=== PATIENT | female | born 1990 | race Caucasian/White ===

== ENCOUNTER 2018-08-29 09:36 | Emergency (ER) | payer OTHER ==
[~2018-08-29] VITALS: Ht 172.7 cm; Wt 95.9 kg
[2018-08-29 09:55] VITALS: BP 130/90
[2018-08-29] MEDS ORDERED: KETOROLAC 60 MG/2 ML VIAL IM ONE (11:00)
[2018-08-29] MEDS ORDERED: fentaNYL 0.05 MG/ML VIAL IM ONE (12:05)
[2018-08-29 14:06] VITALS: BP 125/78
== END 2018-08-29 14:07 | disposition home or self-care (01) ==
LOC: MED 09:36
DX: S39.012A Strain of muscle, fascia and tendon of lower back, initial encounter (principal); R10.2 Pelvic and perineal pain; X58.XXXA Exposure to other specified factors, initial encounter; Y93.89 Activity, other specified; Y92.89 Other specified places as the place of occurrence of the external cause; Y99.8 Other external cause status
CPT/HCPCS: 72100; 76856; 81002; 81025; 96372; 99284; J1885; J3010; Q0092

== ENCOUNTER 2018-08-30 12:36 | Emergency (ER) | payer OTHER ==
[~2018-08-30] VITALS: Ht 172.7 cm; Wt 83.9 kg
--- NOTE | 2018-08-30 12:50 | NUR ---
patient amb with steady gait to bed 09
[2018-08-30 12:55] VITALS: BP 137/79
--- NOTE | 2018-08-30 12:58 | NUR ---
BIB SELF. PATIENT PRESENTS TO ED FOR A RECHECK. PT STATES SHE WAS HERE YESTERDAY AND WAS TOLD TO COME BACK IN TODAY TO RECHECK ON HER OVIAN PAIN. STATES SHE HAS HAD N/V TODAY; SKIN IS PINK/WARM/DRY; AAOX4 WITH EVEN AND STEADY GAIT; LUNGS CLEAR BL; HR EVEN AND REGULAR; PT DENIES ANY FEVER, CP, SOB, OR COUGH AT THIS TIME; PATIENT STATES PAIN OF 5/10 AT THIS TIME; VSS; PATIENT POSITIONED FOR COMFORT; HOB ELEVATED; BEDRAILS UP X2; BED DOWN. ER MD MADE AWARE OF PT STATUS.
--- NOTE | 2018-08-30 13:49 | NUR ---
Patient being evaluated by physician at bedside.
--- NOTE | 2018-08-30 13:53 | NUR ---
DR. DONALDSON EVALUATING AT BEDSIDE
[2018-08-30 15:52] LABS: APPEARANCE,URINE CLEAR (CLEAR); COLOR,URINE YELLOW (YELLOW)
[2018-08-30 15:53] LABS: BLOOD, URINE TRACE (NEGATIVE); UGLUCOSE NEGATIVE (NEGATIVE)
[2018-08-30 15:54] LABS: BILIRUBIN,URINE NEGATIVE (NEGATIVE); LEUKOCYTE ESTERASE ,URINE TRACE (NEGATIVE); NITRITE, URINE NEGATIVE (NEGATIVE)
[2018-08-30 15:56] VITALS: BP 132/75
--- NOTE | 2018-08-30 15:57 | NUR ---
Patient discharged with v/s stable. Written and verbal after care instructions given and explained. Patient verbalized understanding. Ambulatory with steady gait. All questions addressed prior to discharge. Advised to follow up with PMD.
[2018-08-30 16:00] LABS: RBC,URINE 0-5 (RARE) /HPF (0-5)
== END 2018-08-30 15:57 | disposition home or self-care (01) ==
LOC: MED 12:36
DX: R11.10 Vomiting, unspecified (principal); R63.0 Anorexia
CPT/HCPCS: 76705; 76830; 81001; 81025; 87086; 93976; 99285; Q0092

== ENCOUNTER 2019-05-04 08:13 | Emergency (ER) | payer OTHER ==
[~2019-05-04] VITALS: Ht 175.3 cm; Wt 95.3 kg
[2019-05-04 08:13] VITALS: BP 109/68
--- NOTE | 2019-05-04 08:13 | NUR ---
PT BIB EMS C/O NONTRAUMATIC LOW BACK PAIN RADIATES TO R LEG X2 DAYS 9 PAIN. TOOK MOTRIN WITH NO RELIEF. DENIES SOB, N, V , CHEST PAIN, FEVER. PT STATES TO HAVE FELL YESTERDAY, NO INJURY. ER MD TO SEE PT.
--- NOTE | 2019-05-04 08:13 | NUR ---
Patient BIBA BLS, transferred to bed 8. RN evaluating patient at bedside.
--- NOTE | 2019-05-04 08:30 | NUR ---
Dr. Myers evaluating patient at bedside.
[2019-05-04] MEDS ORDERED: MORPHINE SULFATE 4 MG/ML SYR IM ONE (08:35)
[2019-05-04] MEDS ORDERED: LORazepam 2 MG/ML VIAL IM ONE (08:35)
[2019-05-04] MEDS ORDERED: KETOROLAC 60 MG/2 ML VIAL IM ONE (08:35)
[2019-05-04 08:58] LABS: BILIRUBIN,URINE NEGATIVE (NEGATIVE); BLOOD, URINE 2+ (NEGATIVE); COLOR,URINE YELLOW (YELLOW); LEUKOCYTE ESTERASE ,URINE NEGATIVE (NEGATIVE); NITRITE, URINE NEGATIVE (NEGATIVE); UGLUCOSE NEGATIVE (NEGATIVE)
[2019-05-04 09:09] LABS: BARBITURATE, URINE NEG. ng/ml (NEG <=200); BENZODIAZEPINE, URINE NEG. ng/mL (NEG <=200); CANNABINOID, URINE POS. ng/mL (NEG <=50); COCAINE, URINE NEG. ng/mL (NEG <=300); OPIATE, URINE NEG. ng/mL (NEG <=2000); PHENCYCLIDINE SCREEN,URINE NEG. ng/mL (NEG <=25)
[2019-05-04 09:18] LABS: APPEARANCE,URINE HAZY (CLEAR)
--- NOTE | 2019-05-04 09:26 | NUR ---
Dr. Myers re-evaluating patient at bedside.
[2019-05-04 09:30] LABS: WBC,URINE 0-5 /HPF (0-5)
--- NOTE | 2019-05-04 10:30 | NUR ---
PT LYING COMFORTABLY IN HER BED. NO SIGN OF DISTRESS NOTED. PT STATES TO HAVE PAIN 6/10. WILL CONTINUE TO MONITOR PT.
[2019-05-04 10:45] VITALS: BP 108/55
--- NOTE | 2019-05-04 10:45 | NUR ---
Patient discharged with v/s stable. Written and verbal after care instructions given and explained. Patient alert, oriented and verbalized understanding of instructions. Wheel Chair Assisted with to car. All questions addressed prior to discharge. ID band removed. Patient advised to follow up with PMD. Rx of VOLTAREN, TRAMADOL given. Patient educated on indication of medication including possible reaction and side effects. Opportunity to ask questions provided and answered.
== END 2019-05-04 10:45 | disposition home or self-care (01) ==
LOC: MED 08:13
DX: M54.41 Lumbago with sciatica, right side (principal); M54.42 Lumbago with sciatica, left side; F12.10 Cannabis abuse, uncomplicated; I10 Essential (primary) hypertension
CPT/HCPCS: 80305; 81001; 81025; 96372; 99283; J1885; J2060; J2270